=== PATIENT | male | born 1940 | race Caucasian/White ===

== ENCOUNTER 2021-02-12 01:24 | Inpatient (IN) ==
[2021-02-12] MEDS ORDERED: Naloxone 0.4 MG/ML INJ IVP PRN (04:19)
[2021-02-12] MEDS ORDERED: Ondansetron 4 MG/2 ML VIAL IVP PRN (04:19)
[2021-02-12] MEDS ORDERED: Acetaminophen 325 MG TABLET PO PRN (04:19)
[2021-02-12] MEDS ORDERED: Ipratropium 1 PUFF INHALER IH PRN (04:27)
[2021-02-12] MEDS ORDERED: *HR* Enoxaparin 40 MG/0.4 ML SYRINGE SQ SCH (06:00)
[2021-02-12] MEDS: *HR* Enoxaparin 100 MG/ML SYRINGE SQ SCH (17:34)
[2021-02-13] MEDS: *HR* Enoxaparin 100 MG/ML SYRINGE SQ SCH ×2 (05:44→18:06)
[2021-02-13 06:12] LABS: Hematocrit 49.1 % (37.5-50.1); Hemoglobin 15.7 g/dL (12.9-16.9); Mean Corpuscular Hemoglobin 31.3 pg (28.0-33.3); Mean Corpuscular Volume 97.8 fL (83.0-100.0); Mean Platelet Volume 11.7 fL (9.4-12.4); Platelet Count 243 K/mcL (140-400); Red Blood Count 5.02 M/mcL (4.19-5.50); Red Cell Distribution Width 13.9 % (11.5-14.5); White Blood Count 16.4 K/mcL (4.3-11.1)
[2021-02-13 06:23] LABS: INR 1.3; Prothrombin Time 14.5 Seconds (9.4-12.1)
[2021-02-13 06:33] LABS: Alanine Aminotransferase 36 Units/L (7-52); Albumin 3.2 g/dL (3.5-5.7); Albumin/Globulin Ratio 0.7 (1.1-2.2); Alkaline Phosphatase 69 Units/L (34-104); Aspartate Amino Transferase 62 Units/L (13-39); BUN/Creatinine Ratio 45 (6-26); Bilirubin,Total 0.8 mg/dL (0.3-1.0); Blood Urea Nitrogen 39 mg/dL (8-23); Calcium 9.1 mg/dL (8.6-10.3); Carbon Dioxide 25 mEq/L (23-29); Chloride 105 mEq/L (98-107); Globulin 4.4 g/dL (2.4-3.5); Glucose 87 mg/dL (70-105); Lactate Dehydrogenase 364 Units/L (140-271); Osmolality,Calculated 301 (280-300); Potassium 4.8 mEq/L (3.5-5.1); Sodium 141 mEq/L (136-145); Total Protein 7.6 g/dL (6.4-8.9); eGFR For African Americans > 60 (> 60); eGFR For Non-African Americans > 60 (> 60)
[2021-02-13 06:46] LABS: Activated Partial Thrombo Time 127.4 Seconds (26.0-36.0)
[2021-02-13] MEDS: Dexamethasone Sodium Phos/PF 10 MG/ML VIAL IVP SCH (07:55)
[2021-02-13] MEDS ORDERED: Dexamethasone Sodium Phos/PF 10 MG/ML VIAL IVP SCH (09:00)
[2021-02-13 09:57] LABS: C-Reactive Protein 182 mg/L (Less than 10)
[2021-02-13] MEDS ORDERED: levoFLOXacin 750 MG/150 ML 750 MG/150 ML BAG IVPB SCH (12:00)
[2021-02-13] MEDS ORDERED: *HR* HYDROcodone/Acet 5/325 mg TABLET PO PRN (13:18)
[2021-02-13 13:25] LABS: Ferritin 816 ng/mL (20-250)
[2021-02-13] MEDS: Piperacillin/Tazobactam 3.375 GM in 0.9 % Sodium Chloride Mini Bag 100 ML IVPB SCH ×2 (14:38→23:53)
[2021-02-14] MEDS: *HR* Enoxaparin 100 MG/ML SYRINGE SQ SCH ×2 (05:13→18:41)
[2021-02-14 06:13] LABS: Hematocrit 48.9 % (37.5-50.1); Hemoglobin 15.6 g/dL (12.9-16.9); Mean Corpuscular HGB Conc 31.9 g/dL (31.6-35.5); Mean Corpuscular Hemoglobin 31.2 pg (28.0-33.3); Mean Corpuscular Volume 97.8 fL (83.0-100.0); Mean Platelet Volume 12.1 fL (9.4-12.4); Platelet Count 243 K/mcL (140-400); Red Cell Distribution Width 13.7 % (11.5-14.5); White Blood Count 14.1 K/mcL (4.3-11.1)
[2021-02-14 06:24] LABS: BUN/Creatinine Ratio 42 (6-26); Blood Urea Nitrogen 36 mg/dL (8-23); Calcium 8.7 mg/dL (8.6-10.3); Carbon Dioxide 28 mEq/L (23-29); Chloride 103 mEq/L (98-107); Glucose 107 mg/dL (70-105); Osmolality,Calculated 297 (280-300); Potassium 4.9 mEq/L (3.5-5.1); Sodium 139 mEq/L (136-145); eGFR For African Americans > 60 (> 60); eGFR For Non-African Americans > 60 (> 60)
[2021-02-14 06:29] LABS: INR 1.1; Prothrombin Time 12.8 Seconds (9.4-12.1)
[2021-02-14] MEDS: Budesonide/Formoterol 80/4.5 1 PUFF INH IH SCH ×2 (07:46→19:50)
[2021-02-14] MEDS: Piperacillin/Tazobactam 3.375 GM in 0.9 % Sodium Chloride Mini Bag 100 ML IVPB SCH ×2 (09:34→18:39)
[2021-02-14] MEDS: Aspirin Enteric Coated 81 MG Tablet PO SCH (09:34)
[2021-02-14] MEDS: Dexamethasone Sodium Phos/PF 10 MG/ML VIAL IVP SCH (09:52)
[2021-02-14] MEDS: *HR* HYDROcodone/Acet 5/325 mg TABLET PO PRN (19:35)
[2021-02-15] MEDS: Piperacillin/Tazobactam 3.375 GM in 0.9 % Sodium Chloride Mini Bag 100 ML IVPB SCH ×4 (00:31→23:24)
[2021-02-15 02:40] LABS: Hematocrit 46.6 % (37.5-50.1); Hemoglobin 14.9 g/dL (12.9-16.9); Mean Corpuscular Hemoglobin 30.7 pg (28.0-33.3); Mean Corpuscular Volume 95.9 fL (83.0-100.0); Mean Platelet Volume 11.8 fL (9.4-12.4); Platelet Count 270 K/mcL (140-400); Red Blood Count 4.86 M/mcL (4.19-5.50); Red Cell Distribution Width 13.5 % (11.5-14.5); White Blood Count 11.8 K/mcL (4.3-11.1)
[2021-02-15 03:03] LABS: BUN/Creatinine Ratio 39 (6-26); Blood Urea Nitrogen 31 mg/dL (8-23); C-Reactive Protein 29 mg/L (Less than 10); Calcium 8.4 mg/dL (8.6-10.3); Carbon Dioxide 26 mEq/L (23-29); Chloride 103 mEq/L (98-107); Glucose 149 mg/dL (70-105); Lactate Dehydrogenase 259 Units/L (140-271); Osmolality,Calculated 295 (280-300); Potassium 3.9 mEq/L (3.5-5.1); Sodium 138 mEq/L (136-145); eGFR For African Americans > 60 (> 60); eGFR For Non-African Americans > 60 (> 60)
[2021-02-15 03:38] LABS: Ferritin 441 ng/mL (20-250)
[2021-02-15] MEDS: *HR* Enoxaparin 100 MG/ML SYRINGE SQ SCH (04:43)
[2021-02-15] MEDS: Aspirin Enteric Coated 81 MG Tablet PO SCH (08:26)
[2021-02-15] MEDS: Dexamethasone Sodium Phos/PF 10 MG/ML VIAL IVP SCH (10:22)
[2021-02-15] MEDS: Budesonide/Formoterol 80/4.5 1 PUFF INH IH SCH ×2 (10:48→19:49)
[2021-02-15 13:34] LABS: Hematocrit 48.8 % (37.5-50.1); Mean Corpuscular HGB Conc 32.8 g/dL (31.6-35.5); Mean Corpuscular Hemoglobin 31.3 pg (28.0-33.3); Mean Corpuscular Volume 95.3 fL (83.0-100.0); Mean Platelet Volume 11.5 fL (9.4-12.4); Platelet Count 282 K/mcL (140-400); Red Blood Count 5.12 M/mcL (4.19-5.50); Red Cell Distribution Width 13.4 % (11.5-14.5); White Blood Count 13.6 K/mcL (4.3-11.1)
[2021-02-15 13:45] LABS: INR 1.1; Prothrombin Time 12.3 Seconds (9.4-12.1)
[2021-02-15 13:47] LABS: Activated Partial Thrombo Time 39.7 Seconds (26.0-36.0)
[2021-02-15] MEDS ORDERED: *HR* Heparin 5,000 UNIT/ML VIAL IVP PRN (17:00)
[2021-02-15] MEDS ORDERED: Heparin 25,000UNIT/250ML 1/2NS 25,000 UNIT/250 ML IV.SOLN IVC SCH (17:00)
[2021-02-15] MEDS: *HR* HYDROcodone/Acet 5/325 mg TABLET PO PRN (22:11)
[2021-02-15] MEDS: Heparin 25,000 UNIT/250 ML 25,000 UNIT/250 ML IV.SOLN IVC SCH (22:13)
[2021-02-16] MEDS ORDERED: *HR* HYDROmorphone (PF) 1 MG/ML SYRINGE IVP ONE (02:45)
[2021-02-16] MEDS ORDERED: *HR* Labetalol 20 MG/4 ML SYRINGE IVP ONE (05:09)
[2021-02-16 05:55] LABS: Hematocrit 49.8 % (37.5-50.1); Hemoglobin 16.5 g/dL (12.9-16.9); Mean Corpuscular HGB Conc 33.1 g/dL (31.6-35.5); Mean Corpuscular Hemoglobin 31.6 pg (28.0-33.3); Mean Corpuscular Volume 95.4 fL (83.0-100.0); Mean Platelet Volume 11.8 fL (9.4-12.4); Platelet Count 278 K/mcL (140-400); Red Blood Count 5.22 M/mcL (4.19-5.50); Red Cell Distribution Width 13.3 % (11.5-14.5); White Blood Count 14.1 K/mcL (4.3-11.1)
[2021-02-16 06:02] LABS: INR 1.1; Prothrombin Time 12.2 Seconds (9.4-12.1)
[2021-02-16 06:04] LABS: Activated Partial Thrombo Time 43.4 Seconds (26.0-36.0)
[2021-02-16] MEDS: *HR* Heparin 5,000 UNIT/ML VIAL IVP PRN ×2 (06:13→23:29)
[2021-02-16 07:02] LABS: Carbon Dioxide 25 mEq/L (23-29)
[2021-02-16] MEDS: Budesonide/Formoterol 80/4.5 1 PUFF INH IH SCH ×2 (08:09→20:09)
[2021-02-16 08:48] LABS: BUN/Creatinine Ratio 35 (6-26); Blood Urea Nitrogen 30 mg/dL (8-23); Calcium 9.1 mg/dL (8.6-10.3); Chloride 102 mEq/L (98-107); Glucose 72 mg/dL (70-105); Osmolality,Calculated 291 (280-300); Potassium 4.4 mEq/L (3.5-5.1); Sodium 138 mEq/L (136-145); eGFR For African Americans > 60 (> 60); eGFR For Non-African Americans > 60 (> 60)
[2021-02-16] MEDS: Dexamethasone Sodium Phos/PF 10 MG/ML VIAL IVP SCH (09:52)
[2021-02-16] MEDS: Aspirin Enteric Coated 81 MG Tablet PO SCH (09:52)
[2021-02-16] MEDS: Piperacillin/Tazobactam 3.375 GM in 0.9 % Sodium Chloride Mini Bag 100 ML IVPB SCH ×3 (09:52→22:58)
[2021-02-16] MEDS: *HR* HYDROcodone/Acet 5/325 mg TABLET PO PRN ×3 (09:54→22:57)
[2021-02-16] MEDS: Furosemide 20 MG/2 ML VIAL IVP SCH (12:29)
[2021-02-16] MEDS: Heparin 25,000 UNIT/250 ML 25,000 UNIT/250 ML IV.SOLN IVC SCH (16:31)
[2021-02-17] MEDS ORDERED: *HR* HYDROmorphone 2 MG/ML SYRINGE IVP PRN (03:44)
[2021-02-17 05:59] LABS: Basophils # 0.1 K/mcL (0.0-0.2); Basophils % 0.2 %; Eosinophils # 0.2 K/mcL (0.0-0.6); Eosinophils % 0.8 %; Hematocrit 46.4 % (37.5-50.1); Hemoglobin 15.3 g/dL (12.9-16.9); Immature Granulocytes % 1.5 % (0-4); Lymphocytes # 1.5 K/mcL (0.6-4.6); Lymphocytes % 7.4 %; Mean Corpuscular Hemoglobin 31.7 pg (28.0-33.3); Mean Corpuscular Volume 96.1 fL (83.0-100.0); Mean Platelet Volume 11.4 fL (9.4-12.4); Monocytes # 1.6 K/mcL (0.0-1.3); Monocytes % 7.6 %; Neutrophils # 16.8 K/mcL (1.6-8.9); Platelet Count 283 K/mcL (140-400); Red Blood Count 4.83 M/mcL (4.19-5.50); Red Cell Distribution Width 13.4 % (11.5-14.5); Segmented Neutrophils % 82.5 %; White Blood Count 20.4 K/mcL (4.3-11.1)
[2021-02-17] MEDS: *HR* Heparin 5,000 UNIT/ML VIAL IVP PRN (06:40)
[2021-02-17] MEDS ORDERED: *HR* OxyCODONE/APAP 7.5/325 TABLET PO PRN (06:45)
[2021-02-17] MEDS ORDERED: *HR* OxyCODONE/APAP 5/325 TABLET PO PRN (06:45)
[2021-02-17 06:53] LABS: BUN/Creatinine Ratio 35 (6-26); Blood Urea Nitrogen 30 mg/dL (8-23); Calcium 8.7 mg/dL (8.6-10.3); Carbon Dioxide 23 mEq/L (23-29); Chloride 103 mEq/L (98-107); Glucose 79 mg/dL (70-105); Osmolality,Calculated 287 (280-300); Potassium 4.7 mEq/L (3.5-5.1); Sodium 136 mEq/L (136-145); eGFR For African Americans > 60 (> 60); eGFR For Non-African Americans > 60 (> 60)
[2021-02-17] MEDS: Budesonide/Formoterol 80/4.5 1 PUFF INH IH SCH ×2 (08:14→22:11)
[2021-02-17] MEDS ORDERED: Dexamethasone Sodium Phos/PF 10 MG/ML VIAL IVP SCH (09:00)
[2021-02-17] MEDS: Aspirin Enteric Coated 81 MG Tablet PO SCH (09:06)
[2021-02-17] MEDS: Piperacillin/Tazobactam 3.375 GM in 0.9 % Sodium Chloride Mini Bag 100 ML IVPB SCH ×2 (09:06→16:45)
[2021-02-17] MEDS: Furosemide 20 MG/2 ML VIAL IVP SCH (09:07)
[2021-02-17] MEDS: Heparin 25,000 UNIT/250 ML 25,000 UNIT/250 ML IV.SOLN IVC SCH (11:39)
[2021-02-17] MEDS: *HR* OxyCODONE/APAP 10/325 TABLET PO PRN ×2 (16:45→20:35)
[2021-02-18] MEDS: Piperacillin/Tazobactam 3.375 GM in 0.9 % Sodium Chloride Mini Bag 100 ML IVPB SCH ×3 (00:44→23:58)
[2021-02-18] MEDS: *HR* OxyCODONE/APAP 10/325 TABLET PO PRN ×5 (00:46→23:54)
[2021-02-18 03:07] LABS: Basophils % 0.3 %; Mean Platelet Volume 12.2 fL (9.4-12.4); Red Cell Distribution Width 13.4 % (11.5-14.5); Segmented Neutrophils % 85.7 %
[2021-02-18 03:09] LABS: Basophils # 0.1 K/mcL (0.0-0.2); Eosinophils # 0.1 K/mcL (0.0-0.6); Eosinophils % 0.2 %; Hemoglobin 14.7 g/dL (12.9-16.9); Immature Granulocytes % 1.5 % (0-4); Lymphocytes # 1.3 K/mcL (0.6-4.6); Lymphocytes % 5.1 %; Mean Corpuscular Hemoglobin 30.8 pg (28.0-33.3); Mean Corpuscular Volume 96.2 fL (83.0-100.0); Monocytes # 1.9 K/mcL (0.0-1.3); Monocytes % 7.2 %; Neutrophils # 22.2 K/mcL (1.6-8.9); Platelet Count 317 K/mcL (140-400); Red Blood Count 4.78 M/mcL (4.19-5.50); White Blood Count 25.9 K/mcL (4.3-11.1)
[2021-02-18 03:37] LABS: Alanine Aminotransferase 129 Units/L (7-52); Albumin 2.9 g/dL (3.5-5.7); Albumin/Globulin Ratio 0.7 (1.1-2.2); Alkaline Phosphatase 64 Units/L (34-104); Aspartate Amino Transferase 113 Units/L (13-39); BUN/Creatinine Ratio 35 (6-26); Bilirubin,Total 0.6 mg/dL (0.3-1.0); Blood Urea Nitrogen 28 mg/dL (8-23); Carbon Dioxide 26 mEq/L (23-29); Chloride 100 mEq/L (98-107); Glucose 68 mg/dL (70-105); Osmolality,Calculated 284 (280-300); Sodium 135 mEq/L (136-145); Total Protein 6.9 g/dL (6.4-8.9); eGFR For African Americans > 60 (> 60); eGFR For Non-African Americans > 60 (> 60)
[2021-02-18 04:18] LABS: Platelet Estimate Normal (Normal)
[2021-02-18] MEDS: Furosemide 20 MG/2 ML VIAL IVP SCH (08:12)
[2021-02-18] MEDS ORDERED: dexAMETHasone 4 MG TABLET PO SCH (09:00)
[2021-02-18] MEDS: Aspirin Enteric Coated 81 MG Tablet PO SCH (11:14)
[2021-02-18] MEDS: Budesonide/Formoterol 80/4.5 1 PUFF INH IH SCH ×2 (11:51→22:21)
[2021-02-18] MEDS ORDERED: Vancomycin 1,000 MG, Sodium Chloride IRRigation 1,000 ML IR ONE (13:00)
[2021-02-18] MEDS ORDERED: *HR* HYDROmorphone PF 0.5 MG/0.5 ML SYRINGE IVP PRN (14:52)
[2021-02-18] MEDS ORDERED: Promethazine 6.25 MG in Water for inj. (sterile) 20 ML IVPB PRN (14:52)
[2021-02-18] MEDS ORDERED: Ondansetron 4 MG/2 ML VIAL IVP PRN ×2 (14:52→18:34)
[2021-02-18] MEDS ORDERED: *HR* OxyCODONE Immed Rel 5 MG TABLET PO PRN (14:52)
[2021-02-18] MEDS ORDERED: *HR* Propofol 200 MG/20 ML VIAL IVP ONE (15:40)
[2021-02-18] MEDS ORDERED: Ondansetron 4 MG/2 ML VIAL ONE (15:40)
[2021-02-18] MEDS ORDERED: Lidocaine HCL 4 ML Topical Solution (Laryng-O-Jet Kit Sterile Pak) TP ONE (15:40)
[2021-02-18] MEDS ORDERED: Lidocaine -MPF 4% 5 ML AMPUL ONE (15:40)
[2021-02-18] MEDS ORDERED: Lidocaine -MPF 2% 2 ML VIAL ONE (15:40)
[2021-02-18] MEDS ORDERED: *HR* Succinylcholine 200 MG/10 ML VIAL IVP ONE (15:40)
[2021-02-18] MEDS ORDERED: *HR* FentaNYL (PF) 100 MCG/2 ML VIAL ONE ×2 (15:40→16:56)
[2021-02-18] MEDS ORDERED: CeFAZolin Syr 2,000MG/20 ML 2,000 MG/20 ML SYRINGE IVPB ONE (17:18)
[2021-02-18] MEDS ORDERED: Ringers Solution, Lactated 1,000 ML ONE (17:48)
[2021-02-18] MEDS ORDERED: Ipratropium 1 PUFF INHALER IH PRN (18:34)
[2021-02-18] MEDS ORDERED: Naloxone 0.4 MG/ML INJ IVP PRN (18:34)
[2021-02-18] MEDS ORDERED: *HR* OxyCODONE/APAP 7.5/325 TABLET PO PRN (18:34)
[2021-02-18] MEDS ORDERED: *HR* OxyCODONE/APAP 5/325 TABLET PO PRN (18:34)
[2021-02-19 07:10] LABS: Basophils # 0.1 K/mcL (0.0-0.2); Basophils % 0.2 %; Eosinophils % 0.1 %; Hematocrit 40.9 % (37.5-50.1); Hemoglobin 13.3 g/dL (12.9-16.9); Immature Granulocytes % 1.9 % (0-4); Lymphocytes # 1.2 K/mcL (0.6-4.6); Lymphocytes % 5.4 %; Mean Corpuscular HGB Conc 32.5 g/dL (31.6-35.5); Mean Corpuscular Hemoglobin 31.4 pg (28.0-33.3); Mean Corpuscular Volume 96.7 fL (83.0-100.0); Mean Platelet Volume 11.6 fL (9.4-12.4); Monocytes # 2.1 K/mcL (0.0-1.3); Neutrophils # 17.5 K/mcL (1.6-8.9); Platelet Count 304 K/mcL (140-400); Red Blood Count 4.23 M/mcL (4.19-5.50); Red Cell Distribution Width 13.5 % (11.5-14.5); Segmented Neutrophils % 82.4 %; White Blood Count 21.2 K/mcL (4.3-11.1)
[2021-02-19] MEDS: Furosemide 20 MG/2 ML VIAL IVP SCH (07:47)
[2021-02-19] MEDS: Aspirin Enteric Coated 81 MG Tablet PO SCH (07:48)
[2021-02-19] MEDS: dexAMETHasone 4 MG TABLET PO SCH (07:48)
[2021-02-19 08:05] LABS: Alanine Aminotransferase 105 Units/L (7-52); Albumin 2.8 g/dL (3.5-5.7); Albumin/Globulin Ratio 0.8 (1.1-2.2); Alkaline Phosphatase 63 Units/L (34-104); Aspartate Amino Transferase 57 Units/L (13-39); BUN/Creatinine Ratio 36 (6-26); Bilirubin,Direct 0.1 mg/dL (0.0-0.2); Bilirubin,Indirect 0.3 mg/dL (0.0-1.0); Bilirubin,Total 0.4 mg/dL (0.3-1.0); Blood Urea Nitrogen 33 mg/dL (8-23); Calcium 8.9 mg/dL (8.6-10.3); Carbon Dioxide 27 mEq/L (23-29); Chloride 99 mEq/L (98-107); Globulin 3.3 g/dL (2.4-3.5); Glucose 89 mg/dL (70-105); Osmolality,Calculated 285 (280-300); Potassium 4.7 mEq/L (3.5-5.1); Sodium 134 mEq/L (136-145); Total Protein 6.1 g/dL (6.4-8.9); eGFR For African Americans > 60 (> 60); eGFR For Non-African Americans > 60 (> 60)
[2021-02-19] MEDS: Budesonide/Formoterol 80/4.5 1 PUFF INH IH SCH ×2 (08:09→20:41)
[2021-02-19] MEDS: Piperacillin/Tazobactam 3.375 GM in 0.9 % Sodium Chloride Mini Bag 100 ML IVPB SCH ×2 (08:20→15:55)
[2021-02-19] MEDS: *HR* OxyCODONE/APAP 10/325 TABLET PO PRN ×2 (11:39→23:42)
[2021-02-19] MEDS: *HR* HYDROmorphone (PF) 1 MG/ML SYRINGE IVP PRN ×2 (14:36→18:50)
[2021-02-19] MEDS: *HR* Enoxaparin 40 MG/0.4 ML SYRINGE SQ SCH (17:00)
[2021-02-20] MEDS: *HR* HYDROmorphone (PF) 1 MG/ML SYRINGE IVP PRN (02:09)
[2021-02-20] MEDS: *HR* OxyCODONE/APAP 10/325 TABLET PO PRN ×2 (04:22→08:40)
[2021-02-20 05:08] LABS: Basophils # 0.1 K/mcL (0.0-0.2); Basophils % 0.6 %; Eosinophils # 0.1 K/mcL (0.0-0.6); Eosinophils % 0.3 %; Hemoglobin 13.5 g/dL (12.9-16.9); Immature Granulocytes % 2.7 % (0-4); Lymphocytes # 1.3 K/mcL (0.6-4.6); Lymphocytes % 7.8 %; Mean Corpuscular HGB Conc 32.9 g/dL (31.6-35.5); Mean Corpuscular Hemoglobin 31.9 pg (28.0-33.3); Mean Corpuscular Volume 96.9 fL (83.0-100.0); Mean Platelet Volume 11.6 fL (9.4-12.4); Monocytes # 1.9 K/mcL (0.0-1.3); Monocytes % 11.5 %; Platelet Count 314 K/mcL (140-400); Red Blood Count 4.23 M/mcL (4.19-5.50); Red Cell Distribution Width 13.5 % (11.5-14.5); Segmented Neutrophils % 77.1 %; White Blood Count 16.9 K/mcL (4.3-11.1)
[2021-02-20 05:25] LABS: Alanine Aminotransferase 84 Units/L (7-52); Albumin 2.7 g/dL (3.5-5.7); Albumin/Globulin Ratio 0.8 (1.1-2.2); Alkaline Phosphatase 61 Units/L (34-104); Aspartate Amino Transferase 44 Units/L (13-39); BUN/Creatinine Ratio 38 (6-26); Bilirubin,Direct 0.1 mg/dL (0.0-0.2); Bilirubin,Indirect 0.2 mg/dL (0.0-1.0); Bilirubin,Total 0.3 mg/dL (0.3-1.0); Blood Urea Nitrogen 30 mg/dL (8-23); Calcium 8.7 mg/dL (8.6-10.3); Carbon Dioxide 28 mEq/L (23-29); Chloride 101 mEq/L (98-107); Globulin 3.6 g/dL (2.4-3.5); Glucose 103 mg/dL (70-105); Osmolality,Calculated 288 (280-300); Potassium 4.4 mEq/L (3.5-5.1); Sodium 136 mEq/L (136-145); Total Protein 6.3 g/dL (6.4-8.9); eGFR For African Americans > 60 (> 60); eGFR For Non-African Americans > 60 (> 60)
[2021-02-20] MEDS: Furosemide 20 MG/2 ML VIAL IVP SCH (08:40)
[2021-02-20] MEDS: dexAMETHasone 4 MG TABLET PO SCH (08:41)
[2021-02-20] MEDS: Aspirin Enteric Coated 81 MG Tablet PO SCH (08:41)
[2021-02-20] MEDS: Budesonide/Formoterol 80/4.5 1 PUFF INH IH SCH ×2 (10:22→19:58)
[2021-02-20] MEDS ORDERED: *HR* OxyCODONE Immed Rel 5 MG TABLET PO PRN (11:29)
[2021-02-20] MEDS ORDERED: Acetaminophen 325 MG TABLET PO PRN (11:30)
[2021-02-20] MEDS ORDERED: Sennosides/Docusate Sodium TABLET PO PRN (11:30)
[2021-02-20] MEDS ORDERED: *HR* HYDROmorphone (PF) 1 MG/ML SYRINGE IVP PRN (11:31)
[2021-02-20] MEDS: *HR* OxyCODONE Immed Rel 5 MG TABLET PO PRN ×2 (14:41→20:28)
[2021-02-20] MEDS: *HR* Enoxaparin 40 MG/0.4 ML SYRINGE SQ SCH (16:41)
[2021-02-21] MEDS: *HR* OxyCODONE Immed Rel 5 MG TABLET PO PRN ×3 (00:18→09:55)
[2021-02-21 02:55] LABS: Basophils # 0.1 K/mcL (0.0-0.2); Basophils % 0.5 %; Eosinophils # 0.1 K/mcL (0.0-0.6); Eosinophils % 0.3 %; Hematocrit 42.8 % (37.5-50.1); Hemoglobin 13.6 g/dL (12.9-16.9); Immature Granulocytes % 3.4 % (0-4); Lymphocytes # 1.6 K/mcL (0.6-4.6); Lymphocytes % 8.9 %; Mean Corpuscular HGB Conc 31.8 g/dL (31.6-35.5); Mean Corpuscular Hemoglobin 30.8 pg (28.0-33.3); Mean Corpuscular Volume 96.8 fL (83.0-100.0); Monocytes # 1.6 K/mcL (0.0-1.3); Neutrophils # 13.5 K/mcL (1.6-8.9); Platelet Count 320 K/mcL (140-400); Red Blood Count 4.42 M/mcL (4.19-5.50); Red Cell Distribution Width 13.2 % (11.5-14.5); Segmented Neutrophils % 77.9 %; White Blood Count 17.4 K/mcL (4.3-11.1)
[2021-02-21 03:18] LABS: Alanine Aminotransferase 68 Units/L (7-52); Albumin 2.9 g/dL (3.5-5.7); Albumin/Globulin Ratio 0.8 (1.1-2.2); Alkaline Phosphatase 60 Units/L (34-104); Aspartate Amino Transferase 31 Units/L (13-39); BUN/Creatinine Ratio 39 (6-26); Bilirubin,Direct 0.1 mg/dL (0.0-0.2); Bilirubin,Indirect 0.2 mg/dL (0.0-1.0); Bilirubin,Total 0.3 mg/dL (0.3-1.0); Blood Urea Nitrogen 29 mg/dL (8-23); Calcium 9.3 mg/dL (8.6-10.3); Carbon Dioxide 29 mEq/L (23-29); Chloride 99 mEq/L (98-107); Globulin 3.7 g/dL (2.4-3.5); Glucose 115 mg/dL (70-105); Osmolality,Calculated 285 (280-300); Potassium 4.5 mEq/L (3.5-5.1); Sodium 134 mEq/L (136-145); Total Protein 6.6 g/dL (6.4-8.9); eGFR For African Americans > 60 (> 60); eGFR For Non-African Americans > 60 (> 60)
[2021-02-21] MEDS: Budesonide/Formoterol 80/4.5 1 PUFF INH IH SCH ×2 (07:43→19:50)
[2021-02-21] MEDS: Aspirin Enteric Coated 81 MG Tablet PO SCH (09:55)
[2021-02-21] MEDS: dexAMETHasone 4 MG TABLET PO SCH (09:55)
[2021-02-21] MEDS: Furosemide 20 MG/2 ML VIAL IVP SCH (09:56)
[2021-02-21] MEDS: *HR* Enoxaparin 40 MG/0.4 ML SYRINGE SQ SCH (17:07)
[2021-02-22] MEDS: *HR* OxyCODONE Immed Rel 5 MG TABLET PO PRN ×3 (03:35→13:45)
[2021-02-22 07:17] LABS: Basophils # 0.1 K/mcL (0.0-0.2); Basophils % 0.5 %; Eosinophils # 0.2 K/mcL (0.0-0.6); Hemoglobin 13.3 g/dL (12.9-16.9); Immature Granulocytes % 2.8 % (0-4); Lymphocytes # 1.6 K/mcL (0.6-4.6); Lymphocytes % 9.8 %; Mean Corpuscular HGB Conc 33.3 g/dL (31.6-35.5); Mean Corpuscular Hemoglobin 31.7 pg (28.0-33.3); Mean Corpuscular Volume 95.2 fL (83.0-100.0); Mean Platelet Volume 10.4 fL (9.4-12.4); Monocytes # 1.1 K/mcL (0.0-1.3); Monocytes % 6.9 %; Platelet Count 328 K/mcL (140-400); Red Cell Distribution Width 13.5 % (11.5-14.5); White Blood Count 16.4 K/mcL (4.3-11.1)
[2021-02-22 07:36] LABS: Alanine Aminotransferase 63 Units/L (7-52); Albumin 2.8 g/dL (3.5-5.7); Albumin/Globulin Ratio 0.8 (1.1-2.2); Alkaline Phosphatase 71 Units/L (34-104); Aspartate Amino Transferase 28 Units/L (13-39); BUN/Creatinine Ratio 35 (6-26); Bilirubin,Direct 0.1 mg/dL (0.0-0.2); Bilirubin,Indirect 0.2 mg/dL (0.0-1.0); Bilirubin,Total 0.3 mg/dL (0.3-1.0); Blood Urea Nitrogen 25 mg/dL (8-23); Calcium 8.9 mg/dL (8.6-10.3); Carbon Dioxide 28 mEq/L (23-29); Chloride 101 mEq/L (98-107); Globulin 3.5 g/dL (2.4-3.5); Glucose 143 mg/dL (70-105); Osmolality,Calculated 283 (280-300); Potassium 3.9 mEq/L (3.5-5.1); Sodium 133 mEq/L (136-145); Total Protein 6.3 g/dL (6.4-8.9); eGFR For African Americans > 60 (> 60); eGFR For Non-African Americans > 60 (> 60)
[2021-02-22] MEDS: Aspirin Enteric Coated 81 MG Tablet PO SCH (09:25)
[2021-02-22] MEDS: dexAMETHasone 4 MG TABLET PO SCH (09:25)
[2021-02-22] MEDS: Furosemide 20 MG/2 ML VIAL IVP SCH (09:25)
[2021-02-22] MEDS: *HR* Enoxaparin 40 MG/0.4 ML SYRINGE SQ SCH (17:14)
[2021-02-22] MEDS: Budesonide/Formoterol 80/4.5 1 PUFF INH IH SCH ×2 (17:14→21:28)
[2021-02-23] MEDS: *HR* OxyCODONE Immed Rel 5 MG TABLET PO PRN ×4 (01:27→21:32)
[2021-02-23 03:05] LABS: Basophils # 0.1 K/mcL (0.0-0.2); Basophils % 0.6 %; Eosinophils # 0.1 K/mcL (0.0-0.6); Eosinophils % 0.4 %; Hematocrit 38.8 % (37.5-50.1); Hemoglobin 12.8 g/dL (12.9-16.9); Immature Granulocytes % 3.2 % (0-4); Lymphocytes # 1.4 K/mcL (0.6-4.6); Lymphocytes % 9.1 %; Mean Corpuscular Hemoglobin 31.8 pg (28.0-33.3); Mean Corpuscular Volume 96.3 fL (83.0-100.0); Monocytes # 0.9 K/mcL (0.0-1.3); Monocytes % 5.9 %; Neutrophils # 12.6 K/mcL (1.6-8.9); Platelet Count 304 K/mcL (140-400); Red Blood Count 4.03 M/mcL (4.19-5.50); Red Cell Distribution Width 13.5 % (11.5-14.5); Segmented Neutrophils % 80.8 %; White Blood Count 15.6 K/mcL (4.3-11.1)
[2021-02-23 03:16] LABS: Alanine Aminotransferase 60 Units/L (7-52); Albumin 2.9 g/dL (3.5-5.7); Albumin/Globulin Ratio 0.9 (1.1-2.2); Alkaline Phosphatase 73 Units/L (34-104); Aspartate Amino Transferase 29 Units/L (13-39); BUN/Creatinine Ratio 40 (6-26); Bilirubin,Direct 0.1 mg/dL (0.0-0.2); Bilirubin,Indirect 0.2 mg/dL (0.0-1.0); Bilirubin,Total 0.3 mg/dL (0.3-1.0); Blood Urea Nitrogen 31 mg/dL (8-23); Carbon Dioxide 25 mEq/L (23-29); Chloride 104 mEq/L (98-107); Globulin 3.2 g/dL (2.4-3.5); Glucose 119 mg/dL (70-105); Osmolality,Calculated 284 (280-300); Potassium 4.1 mEq/L (3.5-5.1); Sodium 133 mEq/L (136-145); Total Protein 6.1 g/dL (6.4-8.9); eGFR For African Americans > 60 (> 60); eGFR For Non-African Americans > 60 (> 60)
[2021-02-23] MEDS: Aspirin Enteric Coated 81 MG Tablet PO SCH (08:05)
[2021-02-23] MEDS: dexAMETHasone 4 MG TABLET PO SCH (08:05)
[2021-02-23] MEDS: Furosemide 20 MG/2 ML VIAL IVP SCH (08:06)
[2021-02-23] MEDS: Budesonide/Formoterol 80/4.5 1 PUFF INH IH SCH ×2 (08:06→22:08)
[2021-02-23] MEDS: *HR* Enoxaparin 40 MG/0.4 ML SYRINGE SQ SCH (16:21)
[2021-02-24] MEDS: *HR* OxyCODONE Immed Rel 5 MG TABLET PO PRN ×4 (02:01→21:10)
[2021-02-24 04:54] LABS: Basophils # 0.1 K/mcL (0.0-0.2); Basophils % 0.7 %; Eosinophils # 0.2 K/mcL (0.0-0.6); Eosinophils % 0.9 %; Hematocrit 39.6 % (37.5-50.1); Lymphocytes # 1.9 K/mcL (0.6-4.6); Lymphocytes % 11.4 %; Mean Corpuscular HGB Conc 32.8 g/dL (31.6-35.5); Mean Corpuscular Hemoglobin 31.6 pg (28.0-33.3); Mean Corpuscular Volume 96.1 fL (83.0-100.0); Mean Platelet Volume 10.7 fL (9.4-12.4); Monocytes # 1.3 K/mcL (0.0-1.3); Neutrophils # 12.3 K/mcL (1.6-8.9); Platelet Count 375 K/mcL (140-400); Red Blood Count 4.12 M/mcL (4.19-5.50); Red Cell Distribution Width 13.5 % (11.5-14.5); White Blood Count 16.4 K/mcL (4.3-11.1)
[2021-02-24 05:07] LABS: Alanine Aminotransferase 64 Units/L (7-52); Albumin 2.9 g/dL (3.5-5.7); Albumin/Globulin Ratio 0.9 (1.1-2.2); Alkaline Phosphatase 72 Units/L (34-104); Aspartate Amino Transferase 29 Units/L (13-39); BUN/Creatinine Ratio 42 (6-26); Bilirubin,Direct 0.1 mg/dL (0.0-0.2); Bilirubin,Indirect 0.2 mg/dL (0.0-1.0); Bilirubin,Total 0.3 mg/dL (0.3-1.0); Blood Urea Nitrogen 31 mg/dL (8-23); Calcium 9.1 mg/dL (8.6-10.3); Carbon Dioxide 31 mEq/L (23-29); Chloride 99 mEq/L (98-107); Globulin 3.3 g/dL (2.4-3.5); Glucose 95 mg/dL (70-105); Osmolality,Calculated 288 (280-300); Potassium 4.4 mEq/L (3.5-5.1); Sodium 136 mEq/L (136-145); Total Protein 6.2 g/dL (6.4-8.9); eGFR For African Americans > 60 (> 60); eGFR For Non-African Americans > 60 (> 60)
[2021-02-24] MEDS: Aspirin Enteric Coated 81 MG Tablet PO SCH (08:38)
[2021-02-24] MEDS: Furosemide 20 MG/2 ML VIAL IVP SCH (08:38)
[2021-02-24] MEDS: Budesonide/Formoterol 80/4.5 1 PUFF INH IH SCH ×2 (14:02→22:24)
[2021-02-24] MEDS: *HR* Enoxaparin 40 MG/0.4 ML SYRINGE SQ SCH (16:39)
[2021-02-25] MEDS: Budesonide/Formoterol 80/4.5 1 PUFF INH IH SCH ×2 (07:47→20:42)
[2021-02-25] MEDS: Furosemide 20 MG/2 ML VIAL IVP SCH (08:12)
[2021-02-25] MEDS: Aspirin Enteric Coated 81 MG Tablet PO SCH (08:13)
[2021-02-25 08:54] LABS: Hematocrit 41.4 % (37.5-50.1); Hemoglobin 13.8 g/dL (12.9-16.9); Mean Corpuscular HGB Conc 33.3 g/dL (31.6-35.5); Mean Corpuscular Hemoglobin 31.9 pg (28.0-33.3); Mean Corpuscular Volume 95.6 fL (83.0-100.0); Mean Platelet Volume 10.5 fL (9.4-12.4); Platelet Count 388 K/mcL (140-400); Red Blood Count 4.33 M/mcL (4.19-5.50); Red Cell Distribution Width 13.8 % (11.5-14.5); White Blood Count 25.7 K/mcL (4.3-11.1)
[2021-02-25 09:10] LABS: Alanine Aminotransferase 59 Units/L (7-52); Albumin 3.1 g/dL (3.5-5.7); Albumin/Globulin Ratio 0.9 (1.1-2.2); Alkaline Phosphatase 84 Units/L (34-104); Aspartate Amino Transferase 26 Units/L (13-39); BUN/Creatinine Ratio 37 (6-26); Bilirubin,Direct 0.2 mg/dL (0.0-0.2); Bilirubin,Indirect 0.5 mg/dL (0.0-1.0); Bilirubin,Total 0.7 mg/dL (0.3-1.0); Blood Urea Nitrogen 32 mg/dL (8-23); Calcium 9.1 mg/dL (8.6-10.3); Carbon Dioxide 28 mEq/L (23-29); Chloride 99 mEq/L (98-107); Globulin 3.6 g/dL (2.4-3.5); Glucose 85 mg/dL (70-105); Osmolality,Calculated 276 (280-300); Potassium 4.8 mEq/L (3.5-5.1); Sodium 130 mEq/L (136-145); Total Protein 6.7 g/dL (6.4-8.9); eGFR For African Americans > 60 (> 60); eGFR For Non-African Americans > 60 (> 60)
[2021-02-25] MEDS ORDERED: Perflutren Lipid Microsphere 1.3 ML in 0.9 % Sodium Chloride 8.7 ML IVP PRN (09:56)
[2021-02-25 10:48] LABS: Eosinophils # 0.3 K/mcL (0.0-0.6); Lymphocytes # 2.8 K/mcL (0.6-4.6); Monocytes # 2.8 K/mcL (0.0-1.3); Neutrophils # 19.8 K/mcL (1.6-8.9)
[2021-02-25 10:49] LABS: Platelet Estimate Normal (Normal); Reactive Lymphocytes Present (Not Present)
[2021-02-25] MEDS: Azithromycin 500 MG in 0.9 % Sodium Chloride 250 ML IVPB SCH (12:13)
[2021-02-25] MEDS: cefTRIAXone 1,000 MG in 0.9 % Sodium Chloride Mini Bag 100 ML IVPB SCH (12:14)
[2021-02-25] MEDS: *HR* Enoxaparin 40 MG/0.4 ML SYRINGE SQ SCH (16:03)
[2021-02-25] MEDS: *HR* OxyCODONE Immed Rel 5 MG TABLET PO PRN (16:39)
[2021-02-25 19:10] LABS: Bilirubin,Urine Negative (Negative); Blood,Urine Negative (Negative); Clarity,Urine Clear (Clear); Color,Urine Light-Yellow (Yellow); Glucose,Urine (UA) Normal (Normal); Ketones,Urine Negative (Negative); Leukocyte Esterase,Urine Negative (Negative); Nitrite,Urine Negative (Negative); Protein,Urine Negative (Neg-Trace); Specific Gravity,Urine 1.016 (1.010-1.025); Urobilinogen,Urine Normal (Normal)
[2021-02-26] MEDS: *HR* OxyCODONE Immed Rel 5 MG TABLET PO PRN ×2 (01:54→21:27)
[2021-02-26 05:07] LABS: Hematocrit 37.9 % (37.5-50.1); Hemoglobin 12.4 g/dL (12.9-16.9); Mean Corpuscular HGB Conc 32.7 g/dL (31.6-35.5); Mean Corpuscular Hemoglobin 30.7 pg (28.0-33.3); Mean Corpuscular Volume 93.8 fL (83.0-100.0); Mean Platelet Volume 11.5 fL (9.4-12.4); Platelet Count 283 K/mcL (140-400); Red Blood Count 4.04 M/mcL (4.19-5.50); Red Cell Distribution Width 13.9 % (11.5-14.5); White Blood Count 21.6 K/mcL (4.3-11.1)
[2021-02-26] MEDS: cefTRIAXone 1,000 MG in 0.9 % Sodium Chloride Mini Bag 100 ML IVPB SCH (08:03)
[2021-02-26] MEDS: Aspirin Enteric Coated 81 MG Tablet PO SCH (08:03)
[2021-02-26] MEDS: Furosemide 20 MG/2 ML VIAL IVP SCH (08:03)
[2021-02-26] MEDS ORDERED: Perflutren Lipid Microsphere 1.3 ML in 0.9 % Sodium Chloride 8.7 ML IVP PRN (10:37)
[2021-02-26] MEDS: Budesonide/Formoterol 80/4.5 1 PUFF INH IH SCH ×2 (10:44→21:55)
[2021-02-26] MEDS: Apixaban 5 MG TABLET PO SCH ×2 (11:17→21:25)
[2021-02-26] MEDS: polyethylene glycoL 3350 17 GM POWD.PACK PO SCH (11:17)
[2021-02-26] MEDS: Azithromycin 500 MG in 0.9 % Sodium Chloride 250 ML IVPB SCH (11:17)
[2021-02-27 08:09] LABS: Basophils # 0.1 K/mcL (0.0-0.2); Basophils % 0.4 %; Eosinophils # 0.6 K/mcL (0.0-0.6); Hematocrit 36.2 % (37.5-50.1); Hemoglobin 11.9 g/dL (12.9-16.9); Immature Granulocytes % 1.3 % (0-4); Lymphocytes # 1.4 K/mcL (0.6-4.6); Mean Corpuscular HGB Conc 32.9 g/dL (31.6-35.5); Mean Corpuscular Hemoglobin 31.8 pg (28.0-33.3); Mean Corpuscular Volume 96.8 fL (83.0-100.0); Mean Platelet Volume 10.4 fL (9.4-12.4); Monocytes # 0.9 K/mcL (0.0-1.3); Monocytes % 6.2 %; Neutrophils # 11.1 K/mcL (1.6-8.9); Platelet Count 342 K/mcL (140-400); Red Blood Count 3.74 M/mcL (4.19-5.50); Red Cell Distribution Width 13.9 % (11.5-14.5); Segmented Neutrophils % 78.1 %; White Blood Count 14.2 K/mcL (4.3-11.1)
[2021-02-27] MEDS: Aspirin Enteric Coated 81 MG Tablet PO SCH (08:26)
[2021-02-27] MEDS: Apixaban 5 MG TABLET PO SCH ×2 (08:26→20:16)
[2021-02-27] MEDS: cefTRIAXone 1,000 MG in 0.9 % Sodium Chloride Mini Bag 100 ML IVPB SCH (08:27)
[2021-02-27] MEDS: Azithromycin 500 MG in 0.9 % Sodium Chloride 250 ML IVPB SCH (08:27)
[2021-02-27] MEDS: polyethylene glycoL 3350 17 GM POWD.PACK PO SCH (08:27)
[2021-02-27 08:28] LABS: BUN/Creatinine Ratio 36 (6-26); Blood Urea Nitrogen 26 mg/dL (8-23); Calcium 8.8 mg/dL (8.6-10.3); Carbon Dioxide 29 mEq/L (23-29); Chloride 104 mEq/L (98-107); Glucose 92 mg/dL (70-105); Osmolality,Calculated 282 (280-300); Potassium 4.1 mEq/L (3.5-5.1); Sodium 134 mEq/L (136-145); eGFR For African Americans > 60 (> 60); eGFR For Non-African Americans > 60 (> 60)
[2021-02-27] MEDS: Budesonide/Formoterol 80/4.5 1 PUFF INH IH SCH (12:01)
[2021-02-27] MEDS: *HR* OxyCODONE Immed Rel 5 MG TABLET PO PRN (20:15)
[2021-02-28] MEDS: Budesonide/Formoterol 80/4.5 1 PUFF INH IH SCH ×3 (00:03→23:38)
[2021-02-28] MEDS: Aspirin Enteric Coated 81 MG Tablet PO SCH (08:46)
[2021-02-28] MEDS: Apixaban 5 MG TABLET PO SCH ×2 (08:46→19:40)
[2021-02-28] MEDS: polyethylene glycoL 3350 17 GM POWD.PACK PO SCH (08:46)
[2021-02-28] MEDS: cefTRIAXone 1,000 MG in 0.9 % Sodium Chloride Mini Bag 100 ML IVPB SCH (08:47)
[2021-02-28] MEDS: Azithromycin 500 MG in 0.9 % Sodium Chloride 250 ML IVPB SCH (08:47)
[2021-02-28] MEDS: *HR* OxyCODONE Immed Rel 5 MG TABLET PO PRN (15:58)
[2021-03-01] MEDS: *HR* OxyCODONE Immed Rel 5 MG TABLET PO PRN ×2 (02:51→21:05)
[2021-03-01] MEDS: polyethylene glycoL 3350 17 GM POWD.PACK PO SCH (08:17)
[2021-03-01] MEDS: Apixaban 5 MG TABLET PO SCH ×2 (08:21→21:04)
[2021-03-01] MEDS: cefTRIAXone 1,000 MG in 0.9 % Sodium Chloride Mini Bag 100 ML IVPB SCH (08:21)
[2021-03-01] MEDS: Aspirin Enteric Coated 81 MG Tablet PO SCH (08:21)
[2021-03-01 08:51] LABS: Hematocrit 34.2 % (37.5-50.1); Hemoglobin 11.2 g/dL (12.9-16.9); Mean Corpuscular HGB Conc 32.7 g/dL (31.6-35.5); Mean Corpuscular Hemoglobin 31.3 pg (28.0-33.3); Mean Corpuscular Volume 95.5 fL (83.0-100.0); Mean Platelet Volume 9.7 fL (9.4-12.4); Platelet Count 315 K/mcL (140-400); Red Blood Count 3.58 M/mcL (4.19-5.50); Red Cell Distribution Width 13.8 % (11.5-14.5); White Blood Count 11.4 K/mcL (4.3-11.1)
[2021-03-01] MEDS: Budesonide/Formoterol 80/4.5 1 PUFF INH IH SCH ×2 (09:27→21:07)
[2021-03-01] MEDS: Azithromycin 500 MG in 0.9 % Sodium Chloride 250 ML IVPB SCH (09:28)
[2021-03-02] MEDS: Apixaban 5 MG TABLET PO SCH (08:17)
[2021-03-02] MEDS: polyethylene glycoL 3350 17 GM POWD.PACK PO SCH (08:17)
[2021-03-02] MEDS: Aspirin Enteric Coated 81 MG Tablet PO SCH (08:17)
[2021-03-02] MEDS: Budesonide/Formoterol 80/4.5 1 PUFF INH IH SCH (09:44)
[2021-03-02] MEDS: *HR* OxyCODONE Immed Rel 5 MG TABLET PO PRN (10:54)
[2021-03-02 11:52] VITALS: BP 124/56; PULSE 94; TEMP 98.5; O2SAT 93
[2021-03-02 16:02] LABS: Adenovirus Not Detected (Not Detect); Bordetella Pertussis Not Detected (Not Detect); Chlamydophila pneumoniae Not Detected (Not Detect); Coronavirus 229E Not Detected (Not Detect); Coronavirus HKU1 Not Detected (Not Detect); Coronavirus NL63 Not Detected (Not Detect); Coronavirus OC43 Not Detected (Not Detect); Human Metapneumovirus Not Detected (Not Detect); Human Rhinovirus/Enterovirus Not Detected (Not Detect); Influenza A Subtype 2009 H1 Not Detected (Not Detect); Influenza B Not Detected (Not Detect); Mycoplasma pneumoniae Not Detected (Not Detect); Parainfluenza Virus 1 Not Detected (Not Detect); Parainfluenza Virus 2 Not Detected (Not Detect); Parainfluenza Virus 3 Not Detected (Not Detect); Parainfluenza Virus 4 Not Detected (Not Detect); Respiratory Syncytial Virus Not Detected (Not Detect); SARS-CoV-2 Not Detected (Not Detect)
[2021-03-08] MEDS ORDERED: Apixaban 5 MG TABLET PO SCH (09:00)
== END 2021-03-02 19:00 | DRG 239 ==
LOC: 2NENU → SUATTDRO 04:19 → 4WAOSI 02-22 08:34
PROVIDERS: ADMIT Internal Medicine; ATTEND Registered Nurse